=== PATIENT | female | born 1975 | race Caucasian/White ===

== ENCOUNTER 2017-07-09 17:58 | Emergency (ER) | payer BC ==
[2017-07-09] MEDS ORDERED: fentaNYL 100 MCG/2 ML SDV IVPUSH ONE ×2 (19:22→21:11)
[2017-07-09] MEDS ORDERED: Ondansetron 4 MG/2 ML SDV IVPUSH ONE (19:22)
[2017-07-09] MEDS ORDERED: Sodium Chloride 0.9% 1,000 ML IV ONE (19:22)
--- NOTE | 2017-07-09 19:26 | EDM.PDOC ---
ED HPI GENERAL MEDICAL PROBLEM - General Chief Complaint: Gastrointestinal Problem Stated Complaint: POSS BOWEL OBSTRUCTION Time Seen by Provider: 07/09/17 19:10 Source of Information: Reports: Patient History Limitations: Reports: No Limitations - History of Present Illness INITIAL COMMENTS - FREE TEXT/NARRATIVE: Patient is a 41 year old female who presents to the E.D. complaining of abdominal pain and distention. States For three days had diarrhea with n/v. This has resolved. Since then has been experiencing worsening abdominal pain. She feels quite distended and notes sharp pain to the upper quadrants with cramping to the lower. She has had multitude of abdominal surgeries including: appendectomy, cholcystectomy, and total hysterectomy. She has no history of bowel obstruction. COntinues to have poor appetite. She denies fever, n/v, cp, sob, acid reflux, dysuria, dizziness, or any additional complaints. She is passing gas. No blood in stool noted. Treatments GENERAL II FARMWORKER: Reports: Other (see below) Other Treatments GENERAL II FARMWORKER: [facility] referred her to the ED Abdomen Pain Score (Numeric/FACES): 6 - Related Data Allergies Allergy/AdvReac Type Severity Reaction Status Date / Time latex Allergy Hives Verified 07/09/17 18:18 morphine Allergy Anxiety Verified 07/09/17 18:18 Sulfa (Sulfonamide Allergy Swelling Verified 07/09/17 18:18 Antibiotics) sumatriptan [From Imitrex] Allergy Swelling Verified 07/09/17 18:18 sumatriptan succinate Allergy Swelling Verified 07/09/17 18:18 [From Imitrex] Home Meds: Home Meds Acetaminophen/HYDROcodone [[place] 325-7.5 MG] 1 tab PO Q4H PRN #30 tab 05/20/14 [ Rx] Acetaminophen/oxyCODONE [Percocet 325-5 MG] 1 tab PO Q6H PRN #12 tablet [Rx] Ketorolac [Toradol] 10 mg PO Q6H PRN 07/09/17 [History] Ondansetron [Zofran] 4 mg PO ASDIRECTED PRN #12 tablet 07/09/17 [Rx] Past Medical History - Past Health History Medical/Surgical History: Denies Medical/Surgical History [employer]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 (See Below) Other OB/BYN History: HYSTERECTOMY Neurological History: Reports: Migraines Oncologic (Cancer) History: Reports: Other (See Below) 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 ED EXAM, GI/ABD - Physical Exam Exam: See Below Exam Limited By: No Limitations General Appearance: Alert, WD/WN, Mild Distress Ears: Hearing Grossly Normal Nose: Normal Inspection Throat/Mouth: Normal Voice, No Airway Compromise Neck: Normal Inspection, Supple Respiratory/Chest: No Respiratory Distress, Lungs Clear, Normal Breath Sounds, No Accessory Muscle Use, Chest Non-Tender Cardiovascular: Normal Peripheral Pulses, Regular Rate, Rhythm GI/Abdominal Exam: Soft, Distended, Guarding, Rebound, Tender, Other ( Generalized severe pain with gentle palpation. ) Back Exam: Normal Inspection. No: CVA Tenderness (L), CVA Tenderness (R) Neurological: Alert, Oriented, CN II-XII Intact, Normal Cognition, No Motor/ Sensory Deficits Psychiatric: Normal Affect, Normal Mood Skin Exam: Warm, Dry, Intact, Normal Color Course - Vital Signs Last Recorded V/S: Last Vital Signs Temp 98 F 07/09/17 22:15 Pulse 72 07/09/17 22:15 Resp 14 07/09/17 22:15 BP 129/105 H 07/09/17 22:15 Pulse Ox 99 07/09/17 22:15 - Orders/Labs/Meds Labs: Laboratory Tests 07/09/17 07/09/17 07/09/17 Range/Units 19:40 19:40 19:54 WBC 7.23 (3.98-10.04) K/mm3 RBC 4.04 (3.98-5.22) M/mm3 Hgb 12.5 (11.2-15.7) gm/L Hct 36.7 (34.1-44.9) % MCV 90.8 (79.4-94.8) fl MCH 30.9 (25.6-32.2) pg MCHC 34.1 (32.2-35.5) g/dl RDW Std Deviation 45.8 (36.4-46.3) fL Plt Count 282 (182-369) K/mm3 MPV 10.6 (9.4-12.3) fl Neut % (Auto) 52.9 (34.0-71.1) % Lymph % (Auto) 37.5 (19.3-51.7) % [place] % (Auto) 5.8 (4.7-12.5) % Eos % (Auto) 3.2 (0.7-5.8) Baso % (Auto) 0.6 (0.1-1.2) % Neut # (Auto) 3.83 (1.56-6.13) K/mm3 Lymph # (Auto) 2.71 (1.18-3.74) K/mm3 [place] # (Auto) 0.42 H (0.24-0.36) K/mm3 Eos # (Auto) 0.23 (0.04-0.36) K/mm3 Baso # (Auto) 0.04 (0.01-0.08) K/mm3 Sodium 142 (136-145) mEq/L Potassium 3.9 (3.5-5.1) mEq/L Chloride 106 (98-107) mEq/L Carbon Dioxide 27 (21-32) mEq/L Anion Gap 12.9 (5-15) BUN 15 (7-18) mg/dL Creatinine 1.0 (0.55-1.02) mg/dL Est Cr Clr Drug Dosing 67.29 mL/min Estimated GFR (MDRD) > 60 (>60) mL/min BUN/Creatinine Ratio 15.0 (14-18) Glucose 87 (74-106) mg/dL Lactic Acid 0.6 (0.4-2.0) mmol/L Calcium 9.4 (8.5-10.1) mg/dL Total Bilirubin 0.3 (0.2-1.0) mg/dL AST 20 (15-37) U/L ALT 30 (14-59) U/L Alkaline Phosphatase 76 (46-116) U/L C-Reactive Protein 0.5 (<1.0) mg/dL Total Protein 8.1 (6.4-8.2) g/dl Albumin 4.1 (3.4-5.0) g/dl Globulin 4.0 gm/dL Albumin/Globulin Ratio 1.0 (1-2) Lipase 398 H (73-393) U/L Urine Color (Yellow) Urine Appearance (Clear) Urine pH (5.0-8.0) Ur Specific [place] (1.005-1.030) Urine Protein (Negative) Urine Glucose (UA) (Negative) Urine Ketones (Negative) Urine Occult Blood (Negative) Urine Nitrite (Negative) Urine Bilirubin (Negative) Urine Urobilinogen (0.2-1.0) Ur Leukocyte Esterase (Negative) Urine RBC (0-5) /hpf Urine WBC (0-5) /hpf Ur Epithelial Cells (0-5) /hpf Urine Bacteria (FEW) /hpf Urine Mucus (FEW) /hpf 07/09/17 Range/Units 20:30 WBC (3.98-10.04) K/mm3 RBC (3.98-5.22) M/mm3 Hgb (11.2-15.7) gm/L Hct (34.1-44.9) % MCV (79.4-94.8) fl MCH (25.6-32.2) pg MCHC (32.2-35.5) g/dl RDW Std Deviation (36.4-46.3) fL Plt Count (182-369) K/mm3 MPV (9.4-12.3) fl Neut % (Auto) (34.0-71.1) % Lymph % (Auto) (19.3-51.7) % [place] % (Auto) (4.7-12.5) % Eos % (Auto) (0.7-5.8) Baso % (Auto) (0.1-1.2) % Neut # (Auto) (1.56-6.13) K/mm3 Lymph # (Auto) (1.18-3.74) K/mm3 [place] # (Auto) (0.24-0.36) K/mm3 Eos # (Auto) (0.04-0.36) K/mm3 Baso # (Auto) (0.01-0.08) K/mm3 Sodium (136-145) mEq/L Potassium (3.5-5.1) mEq/L Chloride (98-107) mEq/L Carbon Dioxide (21-32) mEq/L Anion Gap (5-15) BUN (7-18) mg/dL Creatinine (0.55-1.02) mg/dL Est Cr Clr Drug Dosing mL/min Estimated GFR (MDRD) (>60) mL/min BUN/Creatinine Ratio (14-18) Glucose (74-106) mg/dL Lactic Acid (0.4-2.0) mmol/L Calcium (8.5-10.1) mg/dL Total Bilirubin (0.2-1.0) mg/dL AST (15-37) U/L ALT (14-59) U/L Alkaline Phosphatase (46-116) U/L C-Reactive Protein (<1.0) mg/dL Total Protein (6.4-8.2) g/dl Albumin (3.4-5.0) g/dl Globulin gm/dL Albumin/Globulin Ratio (1-2) Lipase (73-393) U/L Urine Color Yellow (Yellow) Urine Appearance Clear (Clear) Urine pH 6.0 (5.0-8.0) Ur Specific [place] > or = 1.030 (1.005-1.030) Urine Protein Negative (Negative) Urine Glucose (UA) Negative (Negative) Urine Ketones Negative (Negative) Urine Occult Blood Negative (Negative) Urine Nitrite Negative (Negative) Urine Bilirubin Negative (Negative) Urine Urobilinogen 0.2 (0.2-1.0) Ur Leukocyte Esterase Negative (Negative) Urine RBC 0-5 (0-5) /hpf Urine WBC 0-5 (0-5) /hpf Ur Epithelial Cells 0-5 (0-5) /hpf Urine Bacteria Few (FEW) /hpf Urine Mucus Moderate H (FEW) /hpf Meds: Medications Discontinued Medications Generic Name Dose Route Start Last Admin Trade Name Freq PRN Reason Stop Dose Admin Diatrizoate Meglum/Diatrizoate Sod 90 ml 07/09/17 19:38 07/09/17 20:53 Gastrografin 37% PO 07/09/17 19:39 90 ml ONETIME ONE Administration Fentanyl 75 mcg 07/09/17 19:22 07/09/17 19:46 Sublimaze IVPUSH 07/09/17 19:23 75 mcg ONETIME ONE Administration Fentanyl 75 mcg 07/09/17 21:11 07/09/17 21:19 Sublimaze IVPUSH 07/09/17 21:12 75 mcg ONETIME ONE Administration Sodium Chloride 1,000 mls @ 999 mls/hr 07/09/17 19:22 07/09/17 19:43 Normal Saline IV 07/09/17 20:22 999 mls/hr ONETIME ONE Administration Iopamidol 125 ml 07/09/17 19:38 07/09/17 20:53 Isovue-300 (61%) IVPUSH 07/09/17 19:39 125 ml ONETIME ONE Administration Ondansetron HCl 4 mg 07/09/17 19:22 07/09/17 19:45 Zofran IVPUSH 07/09/17 19:23 4 mg ONETIME ONE Administration Oxycodone/Acetaminophen 2 tab 07/09/17 22:06 07/09/17 22:10 Percocet 325-5 Mg PO 07/09/17 22:07 2 tab ONETIME ONE Administration Sodium Chloride 10 ml 07/09/17 19:22 07/09/17 20:53 Saline Flush FLUSH 10 ml ASDIRECTED PRN Administration Keep Vein Open - Re-Assessments/Exams Free Text/Narrative Re-Assessment/Exam: IV established with normal saline, fentanyl 75 g IVP, and Zofran 4 mg IVP. Initial labs and studies include CBC, chem 14, lipase, CRP, lactic acid, UA, and CT of the abdomen and pelvis with oral and IV contrast. Labs reviewed: CBC and chem 14 worse than normal. CRP is within normal limits. Lactic acid normal. UA negative for any concerning findings. 2111 Patient complaining of pain to the abdomen. Ordered fentanyl [address] abdomen and pelvis with IV and oral contrast impression: No acute findings. Shared results of the labs and CT study with patient. Will discharge patient home with instructions as documented. 07/09/17 22:06 Patient c/o of pain ordered percocet 2 tabs by mouth. She has no debit or credit card for [facility] med. Thus will have to do what is provided here until prescription is filled in the a.m. She has a ride. Departure - Departure Time of Disposition: 21:35 Disposition: Home, Self-Care 01 Condition: Good Clinical Impression: Abdominal pain - Discharge Information Prescriptions: Acetaminophen/oxyCODONE [Percocet 325-5 MG] 1 tab PO Q6H PRN #12 tablet PRN Reason: Pain (Severe 7-10) Ondansetron [Zofran] 4 mg PO ASDIRECTED PRN #12 tablet PRN Reason: Nausea/Vomiting Instructions: Nausea and Vomiting, Adult, [id number], Abdominal Pain, Adult, [id number], Pain Medicine Instructions, [id number] Referrals: PCP,Unknown [Primary Care Provider] - Forms: ED Department Discharge Additional Instructions: As discussed CT of the abdomen and pelvis was essentially normal. All lab work obtained did not reveal any concerning findings. Etiology current complaint is most likely associated with gastritis with recent gastroenteritis symptoms.Treatment will be Percocet one tablet every 6 hours as needed for pain. Zofran 4 mg ODT every 6 hours as needed for nausea and vomiting. Refrain from taking any NSAIDs. Suggest continue taking the ranitidine as prescribed. In addition add Prilosec one tab every a.m. for the next 2 weeks. Stick with a clear liquid diet for the next 24 hours until nausea subsides. Thereafter advance to a bland diet. Follow-up with your PCP this week for reevaluation. Return to the ED as needed for any new or worsening symptoms. No driving this evening since receiving a sedative medication while in the ED. Do not drive while taking the percocet.
[2017-07-09] MEDS ORDERED: Diatrizoate Meglumine/Diatrizoate Sodium 37% 120 ML Bottle PO ONE (19:38)
[2017-07-09] MEDS ORDERED: Iopamidol 612 MG/ML 150 ML Bottle IVPUSH ONE (19:38)
[2017-07-09] MEDS: Sodium Chloride 0.9% 10 ML Syringe FLUSH PRN ×2 (19:48→20:53)
[2017-07-09] MEDS ORDERED: Acetaminophen/oxyCODONE 325-5 MG Tab PO ONE (22:06)
--- NOTE | 2017-07-10 11:39 | CT ---
CT abdomen and pelvis Technique: Multiple axial sections were obtained from the top of the liver inferiorly through the pubic symphysis. Intravenous and oral contrast was utilized. Delayed images were also obtained through the bladder. Comparison: Previous noncontrast CT exam of 05/20/14. Findings: Small portion of the visualized lung bases shows a minimal subpleural nodule within the right base measuring 2.7 mm. Liver shows no focal parenchymal abnormality. Surgical clips seen from prior cholecystectomy. Spleen appears within normal limits. Small soft tissue nodule noted off the anterior spleen compatible with accessory splenic tissue. Adrenal glands show no nodule. Kidneys show symmetric contrast enhancement without hydronephrosis or mass. Pancreas is within normal limits. Aorta shows no aneurysmal dilatation. No retroperitoneal adenopathy is seen. Previous appendectomy is noted. No pelvic mass or adenopathy is seen. Previous hysterectomy is noted. Mild diverticuli seen within primarily the sigmoid colon. Slight increased stool noted within the colon. No free air is appreciated. No free fluid or inflammatory change is seen. Delayed images show contrast within the distal ureters and within the bladder. Bone window settings were reviewed which appear within normal limits for the patient's age. Impression: 1. Small subpleural nodule within the right lung base. This is felt to be present on prior exam and therefore incidental. 2. Other incidental findings. Nothing acute is appreciated. Diagnostic code #3 I agree with preliminary report issued by [employer] ([facility] report finalized on 07/09/17, 10:10 PM Central Time)
== END 2017-07-09 22:26 | disposition home or self-care (01) ==
LOC: JD.ED 17:58
DX: R10.9 Unspecified abdominal pain (principal); Z91.040 Latex allergy status; Z88.5 Allergy status to narcotic agent; Z88.2 Allergy status to sulfonamides; Z88.8 Allergy status to other drugs, medicaments and biological substances
CPT/HCPCS: 36415; 74177; 80053; 81001; 83605; 83690; 85025; 86140; 96361; 96374; 96375; 96376; 99284; A9270; J2405; J3010; J7040; J7050; Q9963; Q9967

== ENCOUNTER 2018-10-16 15:40 | Emergency (ER) | payer BC ==
[2018-10-16] MEDS ORDERED: Dextrose 5%-0.9% NaCl 1,000 ML IV SCH (16:15)
[2018-10-16] MEDS ORDERED: HYDROmorphone 1 MG/ML Syringe IVPUSH ONE (16:16)
[2018-10-16] MEDS ORDERED: diphenhydrAMINE 50 MG/ML SDV IVPUSH ONE (16:16)
[2018-10-16] MEDS ORDERED: Metoclopramide 10 MG/2 ML SDV IVPUSH ONE (16:16)
--- NOTE | 2018-10-16 16:20 | EDM.PDOC ---
<Anthony Hart - Last Filed: 10/16/18 17:50> ED HPI GENERAL MEDICAL PROBLEM - General Chief Complaint: Neurological Problem Stated Complaint: NUMBNESS ON R SIDE OF FACE/HEADACHE Time Seen by Provider: 10/16/18 16:00 Source of Information: Reports: Patient History Limitations: Reports: No Limitations - History of Present Illness INITIAL COMMENTS - FREE TEXT/NARRATIVE: 42-year-old female presents to the ED with left hemifacial numbness tingling and apparently was felt that her speech was not right when she was speaking to a provider at [facility]. Concern for possible stroke entertained and she was thus sent to the ED. Stroke alert was called and I attended her. She reports that she had a bad migraine headache yesterday treated with Benadryl, Toradol, Zofran, and Vicodin. She states she's had left hemifacial numbness and tingling most of today. No trouble swallowing no odynophagia. Injury speech to be normal on assessment and there is no obvious facial paresis. She feels that her balance is off and that she is staggering. She denies any true vertigo signs or symptoms. Denies any recent falls or head trauma. She was nauseated with the migraine is states the nausea will still come in waves at this time. She has not vomited and she has eaten some today. Left Head Pain Score (Numeric/FACES): 6 - Related Data Allergies Allergy/AdvReac Type Severity Reaction Status Date / Time latex Allergy Hives Verified 07/09/17 18:18 morphine Allergy Anxiety Verified 07/09/17 18:18 Sulfa (Sulfonamide Allergy Swelling Verified 07/09/17 18:18 Antibiotics) sumatriptan [From Imitrex] Allergy Swelling Verified 07/09/17 18:18 sumatriptan succinate Allergy Swelling Verified 07/09/17 18:18 [From Imitrex] Home Meds: Home Meds Acetaminophen/HYDROcodone [[place] 325-7.5 MG] 1 tab PO Q4H PRN #30 tab 05/20/14 [ Rx] Ketorolac [Toradol] 10 mg PO Q6H PRN 07/09/17 [History] Ondansetron [Zofran] 4 mg PO ASDIRECTED PRN #12 tablet 07/09/17 [Rx] Past Medical History - Past Health History Medical/Surgical History: Denies Medical/Surgical History RATING OFFICER History: Reports: Other (See Below) Other RATING OFFICER History: HYSTERECTOMY Musculoskeletal History: Reports: Fibromyalgia Neurological History: Reports: Migraines Oncologic (Cancer) History: Reports: Other (See Below) 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 - Infectious Disease History Infectious Disease History: Reports: Chicken Pox, Shingles - Past Surgical History GI Surgical History: Reports: Appendectomy, Cholecystectomy Other Musculoskeletal Surgeries/Procedures:: ganglion cysts Social & Family History - Tobacco Use Smoking Status *Q: Never Smoker - Caffeine Use Caffeine Use: Reports: Coffee Course - Vital Signs Last Recorded V/S: Last Vital Signs Temp 98.1 F 10/16/18 15:54 Pulse 80 10/16/18 15:54 Resp 20 10/16/18 15:54 BP 143/99 H 10/16/18 15:54 Pulse Ox 97 10/16/18 15:54 - Orders/Labs/Meds Orders: Active Orders 24 hr Category Date Time Status Abdomen 1V Flat [CR] Stat Exams 10/16/18 16:18 Taken Head wo Cont [CT] Routine Exams 10/16/18 16:18 Taken Labs: Laboratory Tests 10/16/18 10/16/18 10/16/18 Range/Units 15:59 15:59 16:19 WBC 6.33 (3.98-10.04) K/mm3 RBC 4.07 (3.98-5.22) M/mm3 Hgb 12.4 (11.2-15.7) gm/L Hct 38.1 (34.1-44.9) % MCV 93.6 (79.4-94.8) fl MCH 30.5 (25.6-32.2) pg MCHC 32.5 (32.2-35.5) g/dl RDW Std Deviation 46.8 H (36.4-46.3) fL Plt Count 250 (182-369) K/mm3 MPV 10.8 (9.4-12.3) fl Neutrophils % (Manual) 58 (40-60) % Band Neutrophils % 0 (0-10) % Lymphocytes % (Manual) 36 (20-40) % Atypical Lymphs % 0 % Monocytes % (Manual) 4 (2-10) % Eosinophils % (Manual) 2 (0.7-5.8) % Basophils % (Manual) 0 L (0.1-1.2) Platelet Estimate Adequate RBC Morph Comment Normal Sodium 141 (136-145) mEq/L Potassium 4.3 (3.5-5.1) mEq/L Chloride 104 (98-107) mEq/L Carbon Dioxide 29 (21-32) mEq/L Anion Gap 12.3 (5-15) BUN 19 H (7-18) mg/dL Creatinine 1.1 H (0.55-1.02) mg/dL Est Cr Clr Drug Dosing 60.56 mL/min Estimated GFR (MDRD) 55 (>60) mL/min BUN/Creatinine Ratio 17.3 (14-18) Glucose 94 (74-106) mg/dL Calcium 9.4 (8.5-10.1) mg/dL Magnesium 1.8 (1.8-2.4) mg/dl Total Bilirubin 0.3 (0.2-1.0) mg/dL AST 13 L (15-37) U/L ALT 27 (14-59) U/L Alkaline Phosphatase 82 (46-116) U/L C-Reactive Protein < 0.2 (<1.0) mg/dL Total Protein 7.3 (6.4-8.2) g/dl Albumin 3.6 (3.4-5.0) g/dl Globulin 3.7 gm/dL Albumin/Globulin Ratio 1.0 (1-2) Urine Color Yellow (Yellow) Urine Appearance Clear (Clear) Urine pH 5.5 (5.0-8.0) Ur Specific [place] > or = 1.030 (1.005-1.030) Urine Protein Negative (Negative) Urine Glucose (UA) Negative (Negative) Urine Ketones Negative (Negative) Urine Occult Blood Negative (Negative) Urine Nitrite Negative (Negative) Urine Bilirubin Negative (Negative) Urine Urobilinogen 0.2 (0.2-1.0) Ur Leukocyte Esterase Negative (Negative) Urine RBC 0-5 (0-5) /hpf Urine WBC 0-5 (0-5) /hpf Ur Epithelial Cells 0-5 (0-5) /hpf Calcium Oxalate Crystal Few H (NONE) Urine Bacteria Few (FEW) /hpf Urine Mucus Moderate H (FEW) /hpf Meds: Medications Discontinued Medications Generic Name Dose Route Start Last Admin Trade Name Freq PRN Reason Stop Dose Admin Diphenhydramine HCl 25 mg 10/16/18 16:16 10/16/18 16:28 Benadryl IVPUSH 10/16/18 16:17 25 mg ONETIME ONE Administration Hydromorphone HCl 0.5 mg 10/16/18 16:16 10/16/18 16:29 Dilaudid IVPUSH 10/16/18 16:17 0.5 mg ONETIME ONE Administration Dextrose/Sodium Chloride 1,000 mls @ 500 mls/hr 10/16/18 16:15 10/16/18 16:32 Dextrose 5%-Normal Saline IV 500 mls/hr ASDIRECTED RODERICK Administration Magnesium Citrate 240 ml 10/16/18 18:01 10/16/18 18:13 Citrate Of Magnesia PO 10/16/18 18:02 Not Given ONETIME ONE Metoclopramide HCl 7.5 mg 10/16/18 16:16 10/16/18 16:26 Reglan IVPUSH 10/16/18 16:17 7.5 mg ONETIME ONE Administration - Radiology Interpretation Free Text/Narrative:: 42-year-old female presents to the ED with a left hemicranial headache that started yesterday. She treated herself with Toradol, Zofran, and Vicodin . She states that headache is improved but still rates it 6 out of 10. Her chief complaint is like left sahra-facial numbness and tingling. There was some suggestion that her speech didn't sound right on the phone when she spoke with personnel at [facility]. She was therefore advised to come to the ED for further evaluation. On complete neurological examination there is no motor deficit. She appears to have some numbness and tingling of the left sahra-face which would be the fifth cranial nerve. There is no evidence that she has any Navarrete's palsy at this time. I suspect it is residual from migraine headache. CT had to be done. One view of the abdomen because of persistent right flank pain will be done in routine labs including a urinalysis will be done. She'll be given IV D5 normal saline at 500 mils per hour. With Benadryl 25 mg IV with Reglan 7.5 mg IV and Dilaudid 0.5 mg IV for headache relief. - Re-Assessments/Exams Free Text/Narrative Re-Assessment/Exam: 10/16/18 17:50 CT head is within normal limits. There is no abnormalities identified. There is no intracranial mass effect or hemorrhage.Labs reveal a normal white count at 6.33. Differential reveals 58% neutrophils and no bands. Hemoglobin is 12.4. Hematocrit is 38.1. Platelet count 250,000. Sodium is 141 with potassium of 4.3. Chloride 104 with bicarbonate 29. And a gap is 12.3. BUN is 19 with a creatinine of 1.1. GFR is 55. Glucose is 94. Calcium is 9.4. Magnesium is 1.8 with total bilirubin is 0.3. AST is 13 ALT is 27. Alk phosphatase is 82. C-reactive protein is less than 0.2. 1.3. Urinalysis is normal. 10/16/18 17:50 KUB reveals increased stool throughout the entire colon. This is composed significant constipation is likely the cause of her right flank and abdominal pain. 10/16/18 18:00 custom findings with the patient. She still has the sensation that she has numbness and tingling in the left sahra-face. Once again repeat cranial nerve examination is completely normal. Is possible she is going to go on to develop a Navarrete's palsy but I think this is remote. Astra to check her ocular function and her mouth function every morning and night. Return if she develops any weakness of the facial muscles. Headache is much improved after IV fluids and the above medications. Her for a ride home. She will be given Citroma or magnesium citrate 8 ounces by mouth mixed with 6 ounces of juice to provide bowel cleanse. Departure - Departure Time of Disposition: 18:02 Disposition: Home, Self-Care 01 Condition: Fair Clinical Impression: Constipation by delayed colonic transit, Facial paresthesia Abdominal pain Qualifiers: Abdominal location: right upper quadrant Qualified Code(s): R10.11 - Right upper quadrant pain Migraine headache Qualifiers: Migraine type: without aura Status migrainosus presence: without status migrainosus Intractability: not intractable Qualified Code(s): G43.009 - Migraine without aura, not intractable, without status migrainosus - Discharge Information *PRESCRIPTION DRUG MONITORING PROGRAM REVIEWED*: Not Applicable *COPY OF PRESCRIPTION DRUG MONITORING REPORT IN PATIENT DENG: Not Applicable Instructions: Paresthesia, Recurrent Migraine Headache Referrals: Vaishali Villegas PA-C [Primary Care Provider] - Forms: ED Department Discharge Additional Instructions: Evaluation the emergency room today in regards to paresthesias which means numbness and tingling sensation in the left sahra-face. This is occurred after having a severe migraine headache yesterday. Headache is still present but better than it was yesterday. On examination of your nervous system no abnormalities were appreciated in terms of motor function everything is working as it should. The you do appear to have decreased sensation in the left sahra- face in the distribution of the fifth nerve. Itself it is of little concern. I would think they would might go away on its own over the next 3 days. If you do show any signs of left-sided facial weakness particularly difficulty closing her left eye or drooling due to drooping of your left mouth please return to the ED immediately. CT of the brain today is completely normal. Lab tests also proved to show no metabolic abnormalities. Urinalysis is also clear. Due to complaints of flank pain a x-ray of the abdomen was performed. It reveals significant constipation with stool throughout the entire colon. Therefore magnesium citrate 8 ounces by mouth mixed with 6 ounces of juice of choice or Gatorade/Powerade taken by mouth once. This usually starts to work in 1-3 hours in your bowels will usually move 3 or 4 times often ending and mild diarrhea. This should relieve your right flank and upper quadrant abdominal pain. Follow- up with personal care physician if any other problems occur. <Mica Lara - Last Filed: 10/16/18 20:06> ED ROS GENERAL - Review of Systems Review Of Systems: See Below (left facial numbness and tingling) Constitutional: Reports: Weakness. Denies: Fever, Chills, Malaise HEENT: Reports: Vertigo Respiratory: Reports: No Symptoms Cardiovascular: Reports: No Symptoms Endocrine: Reports: No Symptoms GI/Abdominal: Reports: No Symptoms : Reports: No Symptoms Musculoskeletal: Reports: No Symptoms Skin: Reports: No Symptoms Neurological: Reports: Dizziness, Headache, Numbness, Paresthesia (l), Tingling , Other (no difficulty swallowing or speaking). Denies: Seizure, Syncope, Difficulty Walking, Weakness, Change in Speech, Gait Disturbance Psychiatric: Reports: No Symptoms Hematologic/Lymphatic: Reports: No Symptoms Immunologic: Reports: No Symptoms ED EXAM, NEURO - Physical Exam Exam: See Below Exam Limited By: No Limitations General Appearance: Alert, WD/WN, No Apparent Distress Eye Exam: Bilateral Eye: EOMI, PERRL Ears: Normal External Exam, Normal Canal, Hearing Grossly Normal, Normal TMs Nose: Normal Inspection, Normal Mucosa, No Blood Throat/Mouth: Normal Inspection, Normal Lips, Normal Teeth, Normal Gums, Normal Oropharynx, Normal Voice, No Airway Compromise Head Exam: Atraumatic, Normocephalic Neck: Normal Inspection, Supple, Non-Tender, Full Range of Motion Respiratory/Chest: No Respiratory Distress, Lungs Clear, Normal Breath Sounds, No Accessory Muscle Use, Chest Non-Tender Cardiovascular: Normal Peripheral Pulses, Regular Rate, Rhythm, No Edema, No Gallop, No JVD, No Murmur, No Rub GI/Abdominal: Normal Bowel Sounds, Soft, Non-Tender, No Organomegaly, No Distention, No Abnormal Bruit, No Mass Neurological: Alert, Normal Mood/Affect, Normal Dorsiflexion, CN II-XII Intact, Normal Plantar Flexion, Normal Gait, Normal Reflexes, No Motor/Sensory Deficits , Oriented x 3 DTR: 1+: Patella (R), Patella (L), Achilles (R), Achilles (L), 2+: Bicep (R), Bicep (L), Tricep (R), Tricep (L) Back Exam: Normal Inspection, Full Range of Motion Extremities: Normal Inspection, Normal Range of Motion, Non-Tender, No Pedal Edema, Normal Capillary Refill Psychiatric: Normal Affect, Normal Mood Skin Exam: Warm, Dry, Intact, Normal Color, No Rash
[2018-10-16] MEDS ORDERED: Magnesium Citrate Solution 296 ML Bottle PO ONE (18:01)
--- NOTE | 2018-10-17 07:06 | CR ---
Abdomen: Supine view of the abdomen was obtained. Comparison: No prior abdominal x-ray, previous CT abdomen and pelvis exam of 07/09/17. Calcifications are seen within the pelvis which are compatible with phleboliths. Minimal increased stool is seen throughout colon. Bowel gas pattern is otherwise unremarkable. Surgical clips are seen from prior cholecystectomy. No soft tissue abnormality is seen. Bony structures are unremarkable. Impression: 1. Slight increased stool throughout the colon. Other incidental findings. Diagnostic code #2
--- NOTE | 2018-10-17 07:17 | CT ---
Head CT Technique: Multiple axial sections through the brain were obtained. Intravenous contrast was not utilized. Comparison: Prior head CT study of 06/18/18 and MRI brain performed on 06/18/18. Findings: Ventricles along with basal cisterns and sulci over the convexities appear within normal limits for the patient's age. No abnormal parenchymal densities are seen. No evidence of intracranial hemorrhage. No midline shift or mass effect is seen. Bone window settings were reviewed which show no acute calvarial abnormality. Visualized sinuses are clear. Impression: 1. Nothing acute is seen on noncontrast head CT study. No significant change is seen from prior exams. Diagnostic code #1 MTDD
== END 2018-10-16 18:18 | disposition home or self-care (01) ==
LOC: JD.ED 15:40
DX: G43.909 Migraine, unspecified, not intractable, without status migrainosus (principal); R20.2 Paresthesia of skin; K59.01 Slow transit constipation; R10.11 Right upper quadrant pain; Z88.8 Allergy status to other drugs, medicaments and biological substances; Z91.040 Latex allergy status; Z88.2 Allergy status to sulfonamides
CPT/HCPCS: 36415; 70450; 74018; 80053; 81001; 83735; 85007; 85027; 86140; 96361; 96374; 96375; 99284; J1170; J1200; J2765; J7042; 99285

== ENCOUNTER 2020-10-29 22:26 | Emergency (ER) | payer MEDICAID ==
[2020-10-29] MEDS ORDERED: Sodium Chloride 0.9% 1,000 ML IV ONE (22:59)
[2020-10-29] MEDS ORDERED: Haloperidol Lactate 5 MG/ML SDV IM ONE (22:59)
[2020-10-29] MEDS ORDERED: Metoclopramide 10 MG/2 ML SDV IVPUSH STA (22:59)
[2020-10-29] MEDS ORDERED: Benztropine 1 MG Tab PO STA (22:59)
--- NOTE | 2020-10-29 23:09 | EDM.PDOC ---
ED HPI GENERAL MEDICAL PROBLEM - General Chief Complaint: Headache Stated Complaint: extreme migraine sick to stomach Time Seen by Provider: 10/29/20 22:38 Source of Information: Reports: Patient History Limitations: Reports: No Limitations - History of Present Illness INITIAL COMMENTS - FREE TEXT/NARRATIVE: Mrs. De La Fuente is a 44-year-old woman who now presents the ED stating that she has daily migraines, but that they are usually relatively minor enough that she can manage them, however, 2 days ago, 10/27/2020, she developed a worse than usual migraine. She describes her pain as "stabbing from the inside", felt behind both of her eyes, both of her ears, and in the base of her posterior skull. The pain is constant, and she has not identified any modifiers. She has associated nausea, vomiting, photophobia, and blurry vision, but no associated phonophobia, other visual changes, such as flashing lights or wavy lines, or neurologic symptoms, such as tingling, numbness, or weakness. She states that this migraine is essentially the same as all of her migraines that she has been experiencing since she was 16 years old. She states that she took her prescribed Zofran, Benadryl, and Toradol, which has not helped. The patient states that she is currently under the care of a Neurologist who performs Botox injections for her. She states that she has been on numerous anti-migraine medications, including sumatriptan, Maxalt, propranolol, etc., but that none of them work. The last imaging study of her brain appears to be a CT of the head performed on 10/16/2018, which was unremarkable. Here in the ED, the patient is found to be hemodynamically stable, afebrile, saturating 98% on room air. Other than her chronic/recurrent headaches, the patient denies having a recent fever, chills, sore throat, ear pain, nasal or sinus congestion, cough, dyspnea, chest pain, palpitations, nausea, vomiting, constipation, diarrhea, abdominal pain, urinary symptoms, recent weight gain or weight loss, recent bloody bowel movements or black bowel movements, recent joint aches, or rashes. The patient's PCP is EDIS Cuellar. Her Neurologist is Dr. Allegra Chao. She states that she received her first COVID vaccine today. She has not received an influenza vaccine this season, and stated that she does not want to get one. Headache Pain Score (Numeric/FACES): 7 - Related Data Allergies Allergy/AdvReac Type Severity Reaction Status Date / Time latex Allergy Hives Verified 10/29/20 22:45 Sulfa (Sulfonamide Allergy Swelling Verified 10/29/20 22:45 Antibiotics) sumatriptan [From Imitrex] Allergy Swelling Verified 10/29/20 22:45 sumatriptan succinate Allergy Swelling Verified 10/29/20 22:45 [From Imitrex] morphine AdvReac Anxiety Verified 10/29/20 22:45 Home Meds: Home Meds Acetaminophen/HYDROcodone [Jones 325-7.5 MG] 1 tab PO Q4H PRN #30 tab 05/20/14 [Rx] Ketorolac [Toradol] 10 mg PO Q6H PRN 07/09/17 [History] Ondansetron [Zofran] 4 mg PO ASDIRECTED PRN #12 tablet 07/09/17 [Rx] Levothyroxine Sodium [Levothyroxine] 112 mcg PO ACBREAKFAST 10/29/20 [History] Pregabalin [Lyrica] 1,150 mg PO BID 10/29/20 [History] lisinopriL [Prinivil] 5 mg PO DAILY 10/29/20 [History] Past Medical History Cardiovascular History: Reports: Hypertension Neurological History: Reports: Migraines Psychiatric History: Reports: Depression, Other (See Below) (Fibromyalgia) Endocrine/Metabolic History: Reports: Hypothyroidism, Obesity/BMI 30+ Oncologic (Cancer) History: Reports: Cervix - Infectious Disease History Infectious Disease History: Reports: Chicken Pox, Novel Coronavirus, Shingles - Past Surgical History HEENT Surgical History: Reports: Oral Surgery (dental extractions) GI Surgical History: Reports: Appendectomy, Cholecystectomy Musculoskeletal Surgical History: Reports: Other (See Below) (Ganglion cyst excision right antecubital fossa) Social & Family History - Tobacco Use Tobacco Use Status *Q: Former Tobacco User Years of Tobacco use: 22 Packs/Tins Daily: 1 Month/Year Tobacco Last Used: Quit 2015 Tobacco Use Comment: Started smoking at 17 yrs old - Caffeine Use Caffeine Use: Reports: None - Alcohol Use Alcohol Use History: No - Recreational Drug Use Recreational Drug Use: No - Living Situation & Occupation Living situation: Reports: , with Spouse Occupation: Unemployed ED ROS GENERAL - Review of Systems Review Of Systems: Comprehensive ROS is negative, except as noted in HPI. - Physical Exam Exam: See Below Exam Limited By: No Limitations General Appearance: Alert, WD/WN, No Apparent Distress, Other (Wearing sunglasses) Eye Exam: Bilateral Eye: EOMI, Normal Inspection, PERRL Ears: Normal External Exam, Normal Canal, Hearing Grossly Normal, Normal TMs Nose: Normal Inspection, Normal Mucosa, No Blood Throat/Mouth: Normal Inspection, Normal Lips, Normal Teeth, Normal Gums, Normal Oropharynx, Normal Voice, No Airway Compromise Head Exam: Atraumatic, Normocephalic Neck: Normal Inspection, Supple, Non-Tender, Full Range of Motion. No: Lymphadenopathy (L), Lymphadenopathy (R) Respiratory/Chest: No Respiratory Distress, Lungs Clear, Normal Breath Sounds, No Accessory Muscle Use Cardiovascular: Normal Peripheral Pulses, Regular Rate, Rhythm, No Gallop, No JVD, No Murmur, No Rub GI/Abdominal: Normal Bowel Sounds, Soft, Non-Tender, No Organomegaly, No Distention, No Abnormal Bruit, No Mass Neuro Exam (Abbreviated): Alert, Oriented, CN II-XII Intact, Normal Cognition, No Motor/Sensory Deficits Back Exam: Normal Inspection, Full Range of Motion, NT Extremities: Normal Inspection, Normal Range of Motion, Normal Capillary Refill Psychiatric: Flat Affect Skin Exam: Warm, Dry, Intact, Normal Color, No Rash Course - Vital Signs Last Recorded V/S: Last Vital Signs Temp 36.2 C 10/29/20 22:40 Pulse 78 10/29/20 22:40 Resp 18 10/29/20 22:40 BP 125/80 10/29/20 22:40 Pulse Ox 98 10/29/20 22:40 - Orders/Labs/Meds Meds: Medications Discontinued Medications Generic Name Dose Route Start Last Admin Trade Name Sebastianq PRN Reason Stop Dose Admin Benztropine Mesylate 1 mg 10/29/20 22:59 10/30/20 00:52 Benztropine 1 Mg Tab PO 10/29/20 23:00 Not Given ONETIME STA Haloperidol Lactate 5 mg 10/29/20 22:59 10/30/20 00:51 Haloperidol Lactate 5 Mg/Ml Sdv IM 10/29/20 23:00 Not Given ONETIME ONE Sodium Chloride 1,000 mls @ 999 mls/hr 10/29/20 22:59 10/29/20 23:11 Normal Saline IV 10/29/20 23:59 999 mls/hr ONETIME ONE Administration Metoclopramide HCl 10 mg 10/29/20 22:59 10/29/20 23:13 Metoclopramide 10 Mg/2 Ml Sdv IVPUSH 10/29/20 23:00 10 mg ONETIME STA Administration - Re-Assessments/Exams Free Text/Narrative Re-Assessment/Exam: 10/29/20 23:01 As above, the patient states that she has daily migraines that are usually manageable, but that a more severe migraine developed 2 days ago, associated with nausea and vomiting, which has not improved despite her taking Zofran, Benadryl, and Toradol. Her neurologic examination is completely normal, and a CT of her head on 10/16/2018 was completely normal, therefore I do not see an indication to repeat a CT at this time. I have ordered treatment that includes IM Haldol, oral Cogentin, IV metoclopramide, and IV fluid. 10/29/20 23:20 Notified by Karey MANRIQUE that the patient looked up Haldol and determined that it is not helpful with migraines, therefore refused to take it. Further, she is concerned that the Cogentin that I ordered may interact with her Pk. In point of fact, an excellent study performed over 30 years ago demonstrated the efficacy of IM Haldol (unfortunately, the study was done using IM Haldol, not IV Haldol, therefore that is what we have to recommend), finding that it was effective in significantly improving or completely aborting migraines within 15 to 20 minutes in 85% of participants. This is the case, we now know, because Haldol is a neuroleptic, that effectively halts the abnormal neurologic activity that is responsible for a migraine. The Cogentin, which is very much like Benadryl, which the patient already takes, is only given to prevent potential side effects, although the likelihood of side effects from a single 5 mg dose of Haldol is extremely low. Over my career, I have never seen IM Haldol not work to significantly improve a genuine migraine. If the patient's headache is of some other type, such as a tension-type headache, sinus headache, cluster headache, etc., then it will not help with that. I explained to Karey MANRIQUE that I am recommending that, given its excellent efficacy and safety profile, the patient take the Haldol, however, the patient has the right to refuse any or all medical treatments. If she wishes to suggest some other treatment, I am willing to entertain that, however, I am not going to prescribe an opioid for the treatment of a headache, as opioids are strictly contraindicated for the treatment of headaches unless due to an intracranial hemorrhage. 10/30/20 00:15 Notified by Karey MANRIQUE that the patient had earlier accepted the Reglan and IV fluid, and that her nausea has resolved, however, she did not agree to the Haldol or Cogentin. She would now like to go home. I went and spoke to her. She declined an offer for any prescriptions home. Departure - Departure Time of Disposition: 00:15 Disposition: Home, Self-Care 01 Condition: Good Clinical Impression: Headache - Discharge Information *PRESCRIPTION DRUG MONITORING PROGRAM REVIEWED*: Not Applicable *COPY OF PRESCRIPTION DRUG MONITORING REPORT IN PATIENT DENG: Not Applicable Instructions: Migraine Headache, [id number] Referrals: Vaishali Villegas PA-C [Primary Care Provider] - Allegra Chao MD [Ordering Only Provider] - Forms: ED Department Discharge Additional Instructions: You were seen in the emergency room for a 2-day exacerbation of your chronic daily headaches. You declined treatment with the neuroleptic haloperidol (Haldol) however, agreed to IV fluid and IV metoclopramide (Reglan). We recommend that you stay adequately hydrated, and get rest in a dark, quiet place. We recommend that you follow-up with your Neurologist, Dr. Allegra Chao, at the next available appointment. If any other problems, please do not hesitate to return to the ER. Sepsis Event Note (ED) - Evaluation Sepsis Screening Result: No Definite Risk - Focused Exam Vital Signs: Vital Signs Temp Pulse Resp BP Pulse Ox 10/29/20 22:40 36.2 C 78 18 125/80 98
== END 2020-10-30 00:30 | disposition home or self-care (01) ==
LOC: JD.ED 22:26
DX: R51.9 Headache, unspecified (principal); I10 Essential (primary) hypertension; E03.9 Hypothyroidism, unspecified; E66.9 Obesity, unspecified; Z68.41 Body mass index [BMI] 40.0-44.9, adult; Z87.891 Personal history of nicotine dependence; Z91.040 Latex allergy status; Z88.2 Allergy status to sulfonamides; Z88.8 Allergy status to other drugs, medicaments and biological substances; Z88.5 Allergy status to narcotic agent; Z79.899 Other long term (current) drug therapy
CPT/HCPCS: 96374; 99283; J2765; J7030